=== PATIENT | male | born 1985 | race Caucasian/White ===

== ENCOUNTER → 2019-08-07 | Outpatient (CLI) | payer BC ==
[~2019-08-07] MED LIST: BUPR150ER PO; Bactrim Ds Tab1 EACH PO; CEPH500 PO; CIPR500 PO; CLON.5 PO; DIPH50 PO; DOCU100 PO; HYDACE10B PO; IBUP400 PO; LAVAP17G PO; METR500 PO; Norco 5-325 Ta1 EACH PO; OXYC10TA19 PO; RXTRAM50 PO; SULTRIDS PO; TRAM50 PO
== END | disposition home or self-care (01) ==
LOC: LAB EV 12:21 → LAB SHORT 12:21
DX: R05 Cough (principal); Z20.828 Contact with and (suspected) exposure to other viral communicable diseases
CPT/HCPCS: 87081; U0003

== ENCOUNTER 2020-05-19 13:21 | Observation (INO) | payer BC ==
[~2020-05-19] VITALS: Ht 175.3 cm; Wt 102.1 kg
[2020-05-19 14:11] LABS: BASOPHILS ABSOLUTE AUTO 0.05 K/mm3 (0.00-0.23); BASOPHILS PERCENT AUTO 0 % (0-2); EOSINOPHILS ABSOLUTE AUTO 0.05 K/mm3 (0.00-0.68); EOSINOPHILS PERCENT AUTO 0 % (0-6); Hematocrit 47.4 % (37.0-53.0); Hemoglobin 16.3 g/dL (13.5-17.5); IMMATURE GRAN ABSOLUTE AUTO 0.03 K/mm3 (0.00-0.10); IMMATURE GRAN PERCENT AUTO 0 % (0-1); LYMPHOCYTES ABSOLUTE AUTO 1.62 K/mm3 (0.84-5.20); LYMPHOCYTES PERCENT AUTO 14 % (21-46); MONOCYTES ABSOLUTE AUTO 0.93 K/mm3 (0.16-1.47); MONOCYTES PERCENT AUTO 8 % (4-13); Mean Corpuscular HGB 30.1 pg (26.0-34.0); Mean Corpuscular HGB Conc 34.4 g/dL (31.5-36.5); Mean Corpuscular Volume 88 fL (80-100); NEUTROPHILS ABSOLUTE AUTO 9.16 K/mm3 (1.96-9.15); NEUTROPHILS PERCENT AUTO 77 % (41-73); Platelet Count 237 K/mm3 (150-400); RDW Coefficient Variation 12.1 % (11.7-14.2); Red Blood Cell Count 5.42 M/mm3 (4.30-5.90); White Blood Cell Count 11.84 K/mm3 (4.00-11.30)
[2020-05-19 14:29] LABS: Alanine Aminotransfer (ALT/SGP 52 U/L (12-78); Albumin/Globulin Ratio 1.1 (0.8-1.8); Alk Phos 65 U/L (50-136); Anion Gap 6 mmol/L (6-16); Aspartate Aminotrans (AST/SGOT 19 U/L (12-37); Bilirubin, Total 1.2 mg/dL (0.1-1.0); Blood Urea Nitrogen 12 mg/dL (8-24); Bun/Creatinine Ratio 14.8 (12.0-20.0); CO2, Blood 25 mmol/L (21-32); Chloride, Blood 107 mmol/L (98-108); Creatinine, Blood 0.81 mg/dL (0.60-1.20); Globulin, Blood 3.8 g/dL (2.2-4.0); Glomerular Filtration Rate >60 (60-); Glucose, Blood 94 mg/dL (70-99); Potassium, Blood 4.1 mmol/L (3.5-5.5); Sodium, Blood 138 mmol/L (136-145); Total Protein, Blood 7.8 g/dL (6.4-8.2)
--- NOTE | 2020-05-19 20:30 | NUR ---
ADMISSION NOTED RECEIVED HAND OFF FROM Elvin COSTELLO RN USING SBAR. TRANSPORTED TO ROOM 224 VIA WHEELCHAIR. TRASNFERED SELF TO BED WITH STANDBY ASSISTANCE, TOLERATED WELL. AAO X4, GALDAMEZ, FOLLOWS ALL COMMANDS. ORIENTED TO ROOM, CALL SYSTEM, AND POC, VOICES UNDERSTANDING. LYING IN SEMI FOWLERS WITH EYES OPEN. RESPIRATIONS EVEN AND UNLABORED ON ROOM AIR. LUNG SOUNDS CLEAR BILATERALLY. OCCASIONAL NON PRODUCTIVE COUGH NOTED. STATES THAT HE SMOKES 1/2 PPD AT THIS TIME. RATES PAIN AT 9/10 TO RECTAL AREA. PT INFORMED THAT HE IS NPO PAST MIDNIGHT AND IS ABLE TO EAT AT THIS TIME. OFFERED AVAILABLE FOODS IN THE PANTRY, BUT PT REFUSES. ABDOMEN SOFT AND NONDISTENDED. BOWEL SOUNDS NOTED IN ALL QUADS. RIGHT AC 20G SL PIV IS PATENT, FLUSHING WITH EASE. LR STARTED AT 100ML/HR PER MD ORDER. CONTINENT OF BOWEL AND BLADDER. INSTRUCTED TO USE URINAL FOR ACURATE I/O'S, VOICES UNDERSTANDING. SCD'S IN PLACE. DENIES FURTHER NEEDS OR WANTS AT THIS TIME. ADMISSION ASSESSMENT IN PROGRESS. SAFETY MEASURES IN PLACE. WILL CONTINUE TO MONITOR.
--- NOTE | 2020-05-19 23:30 | NUR ---
PT REQUESTED A SHOWER. WHEN GETTING HIM SET UP FOR SHOWER IT WAS NOTED THAT THERE WAS SS PURULENT LEAKAGE ON THE MEJIA PAD. AFTER PT GOT OUT OF SHOWER, MEPILEX PLACED OVER AREA OF LEAKAGE LEFT OF ANUS. NO ODOR NOTED. STATES THAT PAIN HAS GREATLY DECREASED SINCE HE NOTED DRAINAGE ON BED. GIVEN MAD[place] PANTIES AND PJ BOTTOMS FOR COMFORT. DENIES FURTHER NEEDS OR WANTS AT THIS TIME. SAFETY MEASURES IN PLACE. WILL CONTINUE TO MONITER.
[2020-05-20 00:49] LABS: Influenza A, PCR NEGATIVE (NEGATIVE); Influenza B, PCR NEGATIVE (NEGATIVE); Resp Syncytial Virus, PCR NEGATIVE (NEGATIVE); SARS-Cov-2 (COVID-19) PCR, MMC NEGATIVE (NEGATIVE)
--- NOTE | 2020-05-20 06:41 | NUR ---
SHIFT SUMMARY LYING ON RIGHT SIDE WITH EYES CLOSED, RESTED OFF AND ON SINCE RECTAL ABCESS RUPTURED. IS PLEASANT AND COOPERATIVE WITH CARE. RIGHT AC 20G PIV IS PATENT, INFUSING LR AT 100ML/HR. HAS HAD 3 DOSES OF UNISYN PER MD ORDERS SINCE ADMIT TO UNIT. INDEPENDENT IN ROOM. DENIES PAIN, DISCOMFORT, OR FURTHER NEEDS AT THIS TIME. SAFETY MEASURES IN PLACE. WILL CONTINUE TO MONITOR AND GIVE HAND OFF TO ONCOMING SHIFT USING SBAR DURING BEDSIDE REPORT.
--- NOTE | 2020-05-20 15:00 | NUR ---
PT WENT TO O.R.
--- NOTE | 2020-05-20 15:17 | NUR ---
INTO SDS ADMISSION STARTED
--- NOTE | 2020-05-20 16:15 | NUR ---
05/20/20 1615 Andrews Barakat PATIENT ON SCHEDULED ANTIBIOTICS
[2020-05-20] MEDS ORDERED: OXYC5 PO (17:03)
[2020-05-20] MEDS ORDERED: CIPR500 PO (17:03)
--- NOTE | 2020-05-20 18:22 | NUR ---
DISCHARGE SUMMARY PT A&OX4, VSS, LEFT FLOOR WITH GIRLFRIEND TO GO HOME, WITH ALL PERSONAL POSSESSIONS INCLUDING DC PACKET, 1 ABX AND 1 NARC SCRIPT. DC INSTRUCTIONS PROVIDED. PT REP UNDERSTANDING THOSE INSTRUCTIONS. IV DC'D.
== END 2020-05-20 18:45 | disposition home or self-care (01) ==
LOC: ER 13:21 → SURS 18:15
PROVIDERS: Emergency Medicine; Surgery; ADMIT Surgery
PROC: 0D9QX0Z Drainage of Anus with Drainage Device, External Approach (ICD-10-PCS; principal; 2020-05-20 16:00)
DX: K61.0 Anal abscess (principal); F17.210 Nicotine dependence, cigarettes, uncomplicated; F32.9 Major depressive disorder, single episode, unspecified; F41.9 Anxiety disorder, unspecified
CPT/HCPCS: 0241U; 36415; 74177; 80053; 85025; 96365-59; 96366; 96366-59; 96375-59; 96376; 99284-25; A9270; G0378; J0295; J1100; J1885; J2250; J2405; J2704; J3010; J7030; J7120; Q9967

== ENCOUNTER 2020-08-11 07:58 | Day surgery (SDC) | payer OTHER, BC ==
[~2020-08-11] VITALS: Ht 175.3 cm; Wt 102.0 kg
[~2020-08-11 07:58] MED LIST changes: +OXYC5 PO
--- NOTE | 2020-08-11 10:10 | NUR ---
PT BROUGHT BACK TO RECOVERY ROOM VIA GURNEY IN SUPINE POSITION. RIGHT GROIN SITE WITH ANGIOSEAL IN PLACE. RIGHT GROIN SITE SOFT, TENDER TO TOUCH, PT REPORTS IT FEELING "SORE" NO BLEEDING OR OOZING NOTED. VSS. CALL LIGHT IN REACH. TOLERATES PO FLUIDS/FOOD WITH NO DIFFICULTIES.
--- NOTE | 2020-08-11 10:43 | NUR ---
HOB RAISED TO 45 DEGREES, RIGHT GROIN SITE REMAINS SOFT WITH NO HEMATOMA NOTED. PT C/O PRESSURE TO RIGHT GROIN, TENDER TO TOUCH. WILL CONTINUE TO MONITOR SITE. ATE 100 % OF MEAL TRAY. VSS.
--- NOTE | 2020-08-11 11:17 | NUR ---
PT UP OUT OF BED, GETS DRESSED WITH NO NEEDED ASSISTANCE. RIGHT GROIN SITE REMAINS SOFT WITH NO BLEEDING OR OOZING NOTED. VSS. CALLED FOR RIDE HOME FROM GIRLFRIEND. AMBULATES WITH SLOW STEADY GAIT. NO DISTRESS NOTED.
--- NOTE | 2020-08-11 11:27 | NUR ---
PROVIDED WITH DISCHARGE INSTRUCTIONS. VERBALIZED UNDERSTANDING. DENIES NEED FOR W/C RIDE TO PRIVATE VEHICLE. NO ACUTE DISTRESS NOTED. IV REMOVED WITH CATH INTACT, PRESSURE DRESSING APPLIED. RIGHT GROIN SITE REMAINS SOFT WITH NO BLEEDING OR OOZING NOTED. VSS.
== END 2020-08-11 11:30 | disposition home or self-care (01) ==
LOC: MHTC 07:58
DX: G54.0 Brachial plexus disorders (principal); J45.909 Unspecified asthma, uncomplicated; F17.210 Nicotine dependence, cigarettes, uncomplicated
CPT/HCPCS: 36215; 75710; 75774; 76937; 99152; 99153; C1760; C1769; C1887; C1894; J1644; J2250; J3010; J7030; J7050; Q9967

== ENCOUNTER → 2021-10-13 | Outpatient (CLI) | payer OTHER ==
[2021-10-13 13:12] LABS: BASOPHILS ABSOLUTE AUTO 0.07 K/mm3 (0.00-0.23); BASOPHILS PERCENT AUTO 1 % (0-2); EOSINOPHILS ABSOLUTE AUTO 0.08 K/mm3 (0.00-0.68); EOSINOPHILS PERCENT AUTO 1 % (0-6); Hematocrit 47.5 % (37.0-53.0); Hemoglobin 16.4 g/dL (13.5-17.5); IMMATURE GRAN ABSOLUTE AUTO 0.01 K/mm3 (0.00-0.10); IMMATURE GRAN PERCENT AUTO 0 % (0-1); LYMPHOCYTES ABSOLUTE AUTO 1.86 K/mm3 (0.84-5.20); LYMPHOCYTES PERCENT AUTO 23 % (21-46); MONOCYTES ABSOLUTE AUTO 0.58 K/mm3 (0.16-1.47); MONOCYTES PERCENT AUTO 7 % (4-13); Mean Corpuscular HGB 30.3 pg (26.0-34.0); Mean Corpuscular HGB Conc 34.5 g/dL (31.5-36.5); Mean Corpuscular Volume 88 fL (80-100); Mean Platelet Volume 10.2 fL (9.1-12.4); NEUTROPHILS ABSOLUTE AUTO 5.67 K/mm3 (1.96-9.15); NEUTROPHILS PERCENT AUTO 69 % (41-73); Platelet Count 240 K/mm3 (150-400); RDW Coefficient Variation 12.4 % (11.7-14.2); RDW Standard Deviation 39.8 fL (35.1-46.3); Red Blood Cell Count 5.41 M/mm3 (4.30-5.90); White Blood Cell Count 8.27 K/mm3 (4.00-11.30)
[2021-10-13 13:30] LABS: Albumin, Blood 4.1 g/dL (3.4-5.0); Albumin/Globulin Ratio 1.2 (0.8-1.8); Bilirubin, Total 0.6 mg/dL (0.1-1.0); Bun/Creatinine Ratio 10.6 (12.0-20.0); Creatinine, Blood 0.85 mg/dL (0.60-1.20); Globulin, Blood 3.4 g/dL (2.2-4.0); Potassium, Blood 4.3 mmol/L (3.5-5.5); Thyroid Stimulating Hormone 0.84 uIU/mL (0.360-4.800); Total Protein, Blood 7.5 g/dL (6.4-8.2)
== END | disposition home or self-care (01) ==
LOC: LAB SHORT 13:04 → LAB 13:04
PROVIDERS: Family Medicine
DX: R63.4 Abnormal weight loss (principal)
CPT/HCPCS: 80053; 84443; 85025